=== PATIENT | female | born 2000 | race Caucasian/White ===

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

== ENCOUNTER 2021-04-14 23:27 | Emergency (ER) | payer OTHER ==
[~2021-04-14 23:27] MED LIST changes: +CHRONULAC20 GM/30 M GT; +COLACE 100MG C100 MG PO; +FEOSOL325 MG PO; +FLEET ENEMA133 ML PR; +NORCO 5-325 TA1 EACH PO; +PRENATAL VITAM1 EAC6 PO; +ZANTAC 150 MG150 MG PO; +ZOFRAN ODT4 MG PO
[2021-04-15 00:15] LABS: HEMOGLOBIN 13.3 gm/dl (12.3-15.3); RED BLOOD COUNT 4.72 M/UL (4.00-5.10); WHITE BLOOD COUNT 7.4 K/UL (4.5-11.0)
[2021-04-15 00:32] LABS: BUN/CREATININE RATIO 16 (0-10)
[2021-04-15] MEDS ORDERED: CEPHALEXIN500 M1 PO (06:15)
== END 2021-04-15 06:33 | disposition home or self-care (01) ==
LOC: ER1 23:27
PROVIDERS: Physician Assistant
DX: R10.31 Right lower quadrant pain (principal); I51.9 Heart disease, unspecified; Z90.49 Acquired absence of other specified parts of digestive tract; Z88.8 Allergy status to other drugs, medicaments and biological substances
CPT/HCPCS: 76856; 80053; 81001; 83605; 83690; 84703; 85025; 87086; 96374; 96375; 96376; 99284; J1885; J2270; J2405; Q9967

== ENCOUNTER 2021-06-13 14:56 | Emergency (ER) | payer OTHER ==
[~2021-06-13 14:56] MED LIST changes: +CEPHALEXIN500 M1 PO
[2021-06-13 15:54] LABS: HEMOGLOBIN 12.5 gm/dl (12.3-15.3); RED BLOOD COUNT 4.37 M/UL (4.00-5.10)
[2021-06-13 16:23] LABS: BUN/CREATININE RATIO 17 (0-10)
[2021-06-13] MEDS ORDERED: ONDANSETRON ODT4 MG SL (18:46)
[2021-06-13] MEDS ORDERED: NAPROSYN500 MG PO (18:46)
== END 2021-06-13 19:00 | disposition home or self-care (01) ==
LOC: ER1 14:56
PROVIDERS: Physician Assistant
DX: N83.201 Unspecified ovarian cyst, right side (principal); N94.6 Dysmenorrhea, unspecified; R10.30 Lower abdominal pain, unspecified
CPT/HCPCS: 76856; 80053; 81001; 83690; 84703; 85025; 93005; 96374; 99284; J1885